=== PATIENT | female | born 1975 | race Caucasian/White ===

== ENCOUNTER 2017-09-19 07:29 | Inpatient (IN) | payer OTHER ==
[~2017-09-19] VITALS: Ht 157.5 cm; Wt 71.7 kg
[2017-09-19 07:30] VITALS: Ht 157.5 cm; Wt 71.7 kg
[2017-09-19 08:07] LABS: PLATELET COUNT 195 x10^3mcL (130-400); RED CELL DISTRIBUTION WIDTH 13.8 % (11.5-14.5)
[2017-09-19 08:28] LABS: CALCIUM 8.6 mg/dL (8.5-10.1); CARBON DIOXIDE 26.8 mmol/L (21-32); CHLORIDE SERUM 106 mmol/L (98-107); CREATININE SERUM 0.6 mg/dL (0.6-1.0); GFR1 > 60 mL/min; GLUCOSE SERUM 64 mg/dL (74-106); POTASSIUM SERUM 3.8 mmol/L (3.5-5.1); SODIUM SERUM 139 mmol/L (136-145)
[2017-09-19 08:34] LABS: ALBUMIN 3.4 g/dL (3.4-5.0); ALKALINE PHOSPHATASE 81 U/L (46-116); ALT/SGPT 30 U/L (14-59); AMYLASE 48 U/L (25-115); AST/SGOT 24 U/L (15-37); BILIRUBIN TOTAL 0.8 mg/dL (0.20-1.00); CHOLESTEROL 136 mg/dL (<200); HDL CHOLESTEROL 54 mg/dL (40-60); LIPASE 120 IU/L (73-393); TOTAL PROTEIN, SERUM 6.5 g/dL (6.4-8.2)
[2017-09-19 09:06] LABS: microscopic required? NO
[2017-09-19 09:26] LABS: urine erythrocyte NEGATIVE (NEGATIVE)
[2017-09-19 10:20] LABS: AMPHETAMINE QUAL UR NONE DETECTED (NEG <=1000)
[2017-09-19] MEDS ORDERED: FLUOXETINE20 M3 PO ×2 (11:01→12:22)
[2017-09-19 11:03] LABS: MAGNESIUM 2.1 mg/dL (1.8-2.4); PHOSPHOROUS 3.8 mg/dL (2.5-4.9)
[2017-09-19 11:10] LABS: FREE T4 0.91 ng/dL (0.76-1.46); FREE THYROXINE INDEX 1.8 ug/dL (1.4-4.5); T4(THYROXINE) 5.2 ug/dL (4.7-13.3)
[2017-09-19 11:18] LABS: CHOLESTEROL/HDL RATIO 2.6
[2017-09-19 11:25] LABS: T3 TOTAL 0.85 ng/mL
[2017-09-19] MEDS ORDERED: NEU300 PO (12:21)
[2017-09-19 13:39] VITALS: BP 100/60
[2017-09-19 15:35] VITALS: BP 100/60
[2017-09-19 16:00] VITALS: BP 96/56
[2017-09-19 16:16] VITALS: BP 108/42
[2017-09-19 21:09] VITALS: BP 93/53
[2017-09-20 06:18] VITALS: BP 92/53
[2017-09-20 07:58] LABS: BASOPHIL % 0.5 % (0-2); PLATELET COUNT 180 x10^3mcL (130-400); RED CELL DISTRIBUTION WIDTH 13.5 % (11.5-14.5)
[2017-09-20 08:17] LABS: CALCIUM 8.3 mg/dL (8.5-10.1); CARBON DIOXIDE 26.8 mmol/L (21-32); CHLORIDE SERUM 108 mmol/L (98-107); CREATININE SERUM 0.5 mg/dL (0.6-1.0); GFR1 > 60 mL/min; GLUCOSE SERUM 75 mg/dL (74-106); PHOSPHOROUS 3.8 mg/dL (2.5-4.9); POTASSIUM SERUM 4.4 mmol/L (3.5-5.1); SODIUM SERUM 143 mmol/L (136-145)
[2017-09-20 09:46] VITALS: BP 111/49
[2017-09-20] MEDS ORDERED: GOOD SENSE OMEP20 MG PO (12:18)
[2017-09-20 13:20] VITALS: BP 101/57
[2017-09-20 16:37] VITALS: BP 109/58
[2017-09-20 16:38] VITALS: BP 101/57
== END 2017-09-20 18:24 | disposition home or self-care (01) | DRG 392 ==
LOC: ED 07:29 → DU 10:11
PROVIDERS: Emergency Medicine; Family Medicine Sports Medicine
DX: K21.9 Gastro-esophageal reflux disease without esophagitis (principal); F31.9 Bipolar disorder, unspecified; E87.8 Other disorders of electrolyte and fluid balance, not elsewhere classified; I34.0 Nonrheumatic mitral (valve) insufficiency; M50.322 Other cervical disc degeneration at C5-C6 level; Z90.49 Acquired absence of other specified parts of digestive tract; Z98.84 Bariatric surgery status; Z85.41 Personal history of malignant neoplasm of cervix uteri; Z82.49 Family history of ischemic heart disease and other diseases of the circulatory system
CPT/HCPCS: 83880; 84439; J1885; J2060; J7030; Q0092

== ENCOUNTER 2017-12-26 19:52 | Emergency (ER) | payer OTHER ==
[~2017-12-26] VITALS: Ht 157.5 cm; Wt 70.3 kg
[~2017-12-26 19:52] MED LIST: FLUOXETINE20 M3 PO; GOOD SENSE OMEP20 MG PO; NEU300 PO
[2017-12-26 19:59] VITALS: BP 103/66; Ht 157.5 cm; Wt 70.3 kg
== END 2017-12-26 20:40 | disposition left against medical advice (07) ==
LOC: ED 19:52
DX: Z53.21 Procedure and treatment not carried out due to patient leaving prior to being seen by health care provider (principal)

== ENCOUNTER 2018-08-07 10:58 | Emergency (ER) | payer OTHER ==
[~2018-08-07] VITALS: Ht 157.5 cm; Wt 68.9 kg
[2018-08-07 11:10] VITALS: Ht 157.5 cm; Wt 68.9 kg
[2018-08-07 12:24] LABS: BASOPHIL % 0.6 % (0-2); PLATELET COUNT 181 x10^3mcL (130-400); RED CELL DISTRIBUTION WIDTH 13.5 % (11.5-14.5)
[2018-08-07 12:28] LABS: CALCIUM 9.2 mg/dL (8.5-10.1); CARBON DIOXIDE 28.3 mmol/L (21-32); CHLORIDE SERUM 104 mmol/L (98-107); CREATININE SERUM 0.6 mg/dL (0.6-1.0); GFR1 > 60 mL/min; GLUCOSE SERUM 89 mg/dL (74-106); POTASSIUM SERUM 4.5 mmol/L (3.5-5.1); SODIUM SERUM 139 mmol/L (136-145)
[2018-08-07 12:32] LABS: ALBUMIN 3.7 g/dL (3.4-5.0); ALKALINE PHOSPHATASE 64 U/L (46-116); ALT/SGPT 33 U/L (14-59); AST/SGOT 21 U/L (15-37); BILIRUBIN TOTAL 1.3 mg/dL (0.20-1.00); CHOLESTEROL 160 mg/dL (<200); HDL CHOLESTEROL 69 mg/dL (40-60); MAGNESIUM 2.1 mg/dL (1.8-2.4)
[2018-08-07 12:46] LABS: microscopic required? YES; urine erythrocyte TRACE (NEGATIVE)
[2018-08-07 14:33] VITALS: BP 104/57
== END 2018-08-07 14:33 | disposition home or self-care (01) ==
LOC: ED 10:58
PROVIDERS: Emergency Medicine
DX: R42 Dizziness and giddiness (principal); S00.03XA Contusion of scalp, initial encounter; S80.01XA Contusion of right knee, initial encounter; F31.9 Bipolar disorder, unspecified; Z90.49 Acquired absence of other specified parts of digestive tract; Z85.41 Personal history of malignant neoplasm of cervix uteri; Z98.84 Bariatric surgery status; W18.30XA Fall on same level, unspecified, initial encounter; Y93.89 Activity, other specified; Y92.89 Other specified places as the place of occurrence of the external cause; Y99.8 Other external cause status
CPT/HCPCS: 82962; J7030; J8597; Q0092

== ENCOUNTER 2018-11-03 08:23 | Emergency (ER) | payer OTHER ==
[~2018-11-03] VITALS: Ht 157.5 cm; Wt 69.9 kg
[2018-11-03 08:27] VITALS: Ht 157.5 cm; Wt 69.9 kg
[2018-11-03 09:18] LABS: BASOPHIL % 1.2 % (0-2); PLATELET COUNT 194 x10^3mcL (130-400); RED CELL DISTRIBUTION WIDTH 13.1 % (11.5-14.5)
[2018-11-03 09:42] LABS: ALBUMIN 3.6 g/dL (3.4-5.0); ALKALINE PHOSPHATASE 77 U/L (46-116); ALT/SGPT 27 U/L (14-59); AST/SGOT 24 U/L (15-37); BILIRUBIN TOTAL 1.4 mg/dL (0.20-1.00); CALCIUM 8.6 mg/dL (8.5-10.1); CARBON DIOXIDE 25.2 mmol/L (21-32); CHLORIDE SERUM 105 mmol/L (98-107); CREATININE SERUM 0.6 mg/dL (0.6-1.0); GFR1 > 60 mL/min; SODIUM SERUM 139 mmol/L (136-145); T4(THYROXINE) 5.7 ug/dL (4.7-13.3); TOTAL PROTEIN, SERUM 6.9 g/dL (6.4-8.2)
[2018-11-03 09:52] LABS: GLUCOSE SERUM 53 mg/dL (74-106)
[2018-11-03 11:00] LABS: microscopic required? NO
[2018-11-03 11:24] LABS: AMPHETAMINE QUAL UR NONE DETECTED (See below)
[2018-11-03 12:06] LABS: urine erythrocyte NEGATIVE (NEGATIVE)
[2018-11-03 12:56] VITALS: BP 124/78
== END 2018-11-03 12:56 | disposition home or self-care (01) ==
LOC: ED 08:23
PROVIDERS: Emergency Medicine
DX: M79.605 Pain in left leg (principal); M79.604 Pain in right leg; R25.2 Cramp and spasm; M54.16 Radiculopathy, lumbar region; M47.896 Other spondylosis, lumbar region; F31.9 Bipolar disorder, unspecified; Z98.0 Intestinal bypass and anastomosis status; Z90.49 Acquired absence of other specified parts of digestive tract; Z98.890 Other specified postprocedural states
CPT/HCPCS: 36415; G0480; J1100; J1885

== ENCOUNTER 2018-12-29 15:58 | Emergency (ER) | payer OTHER ==
[~2018-12-29] VITALS: Ht 157.5 cm; Wt 72.1 kg
[2018-12-29 16:22] VITALS: BP 107/63; Ht 157.5 cm; Wt 72.1 kg
[2018-12-29] MEDS ORDERED: MASON NATURAL1000 IU PO (16:31)
[2018-12-29] MEDS ORDERED: FERROUS SULFAT325 M2 PO (16:32)
== END 2018-12-29 17:29 | disposition home or self-care (01) ==
LOC: ED 15:58
DX: N39.0 Urinary tract infection, site not specified (principal); F31.9 Bipolar disorder, unspecified; Z41.1 Encounter for cosmetic surgery; Z90.49 Acquired absence of other specified parts of digestive tract

== ENCOUNTER 2019-03-14 06:23 | Emergency (ER) | payer OTHER ==
[~2019-03-14] VITALS: Ht 154.9 cm; Wt 70.3 kg
[~2019-03-14 06:23] MED LIST changes: +FERROUS SULFAT325 M2 PO; +MASON NATURAL1000 IU PO
[2019-03-14 06:32] VITALS: Ht 154.9 cm; Wt 70.3 kg
[2019-03-14 07:42] VITALS: BP 118/53
[2019-03-14 08:15] LABS: UA SPECIFIC GRAVITY <=1.005 (1.005-1.035); microscopic required? YES; urine erythrocyte 3+ (NEGATIVE)
== END 2019-03-14 07:42 | disposition home or self-care (01) ==
LOC: ED 06:23
PROVIDERS: Specialist
DX: N39.0 Urinary tract infection, site not specified (principal); F31.9 Bipolar disorder, unspecified; Z98.890 Other specified postprocedural states; Z90.49 Acquired absence of other specified parts of digestive tract; Z85.41 Personal history of malignant neoplasm of cervix uteri; Z98.86 Personal history of breast implant removal; Z98.84 Bariatric surgery status
CPT/HCPCS: J1885

== ENCOUNTER 2019-03-24 11:09 | Emergency (ER) | payer OTHER ==
[~2019-03-24] VITALS: Ht 157.5 cm; Wt 70.3 kg
[2019-03-24 11:14] VITALS: Ht 157.5 cm; Wt 70.3 kg
[2019-03-24 12:43] LABS: BASOPHIL % 0.2 % (0-2); PLATELET COUNT 169 x10^3mcL (130-400); RED CELL DISTRIBUTION WIDTH 14.6 % (11.5-14.5)
[2019-03-24 13:04] LABS: CALCIUM 8.1 mg/dL (8.5-10.1); CHLORIDE SERUM 105 mmol/L (98-107); CREATININE SERUM 0.6 mg/dL (0.6-1.0); GFR1 > 60 mL/min; GLUCOSE SERUM 82 mg/dL (74-106); POTASSIUM SERUM 4.3 mmol/L (3.5-5.1); SODIUM SERUM 139 mmol/L (136-145)
[2019-03-24 13:08] LABS: ALBUMIN 3.5 g/dL (3.4-5.0); ALKALINE PHOSPHATASE 67 U/L (46-116); ALT/SGPT 24 U/L (14-59); AST/SGOT 25 U/L (15-37); BILIRUBIN TOTAL 1.32 mg/dL (0.20-1.00); LIPASE 81 IU/L (73-393); TOTAL PROTEIN, SERUM 6.4 g/dL (6.4-8.2)
[2019-03-24 14:52] VITALS: BP 121/64
== END 2019-03-24 14:52 | disposition home or self-care (01) ==
LOC: ED 11:09
PROVIDERS: Emergency Medicine
DX: K29.00 Acute gastritis without bleeding (principal); F31.9 Bipolar disorder, unspecified; Z98.890 Other specified postprocedural states; Z90.49 Acquired absence of other specified parts of digestive tract; Z85.41 Personal history of malignant neoplasm of cervix uteri
CPT/HCPCS: 36415; Q0092

== ENCOUNTER 2019-05-23 10:14 | Inpatient (IN) | payer OTHER ==
--- NOTE | 2019-05-22 19:15 | NUR ---
PT RECEIVED A/O X4, ABLE TO MAKE NEEDS KNOWN. MED-SURG, DENIES ANY CP/PRESSURE. PULSES PALPABLE, NO EDEMA PRESENT. BREATHING IS EVEN AND UNLABORED ON RA, NO RESP DISTRESS NOTED. ABD SOFT AND NONDISTENDED, DENIES N/V. PT NPO AT THIS TIME FOR XR SBFT. VOIDS FREELY, BRP. AMBULATORY WITH STEADY GAIT. SKIN IS WARM AND DRY, INTACT. PT DENIES HAVING ANY PAIN AT THIS TIME. IVF INFUSING WELL TO LAC, SITE WNL. NO ACUTE DISTRESS OBSERVED. BED IN LOWEST SETTING, SIDE RAILS UP X2, CALL LIGHT WITHIN REACH. WILL CONT TO MONITOR.
[~2019-05-23] VITALS: Ht 154.9 cm; Wt 68.9 kg
[2019-05-23 10:20] VITALS: Ht 154.9 cm; Wt 68.9 kg
--- NOTE | 2019-05-23 10:36 | NUR ---
PT AMBULATED TO ROOM. PATIENT ORIENTED TO ROOM AND CALL LIGHT. PATIENT PLACED ON ANALYTICAL LAB TECHNICIAN, NSR. PT STABLE AND FREE OF ANY DISTRESS. WILL CONTINUE TO MONITOR.
--- NOTE | 2019-05-23 11:19 | NUR ---
PT TO CT AT THIS TIME, VIA WHEELCHAIR.
[2019-05-23 11:25] LABS: BASOPHIL % 0.3 % (0-2); PLATELET COUNT 167 x10^3mcL (130-400); RED CELL DISTRIBUTION WIDTH 13.8 % (11.5-14.5)
[2019-05-23 11:31] LABS: CALCIUM 8.1 mg/dL (8.5-10.1); CARBON DIOXIDE 25.3 mmol/L (21-32); CHLORIDE SERUM 104 mmol/L (98-107); CREATININE SERUM 0.6 mg/dL (0.6-1.0); GFR1 > 60 mL/min; GLUCOSE SERUM 98 mg/dL (74-106); POTASSIUM SERUM 4.2 mmol/L (3.5-5.1); SODIUM SERUM 138 mmol/L (136-145)
[2019-05-23 11:35] LABS: ALBUMIN 3.4 g/dL (3.4-5.0); ALKALINE PHOSPHATASE 69 U/L (46-116); ALT/SGPT 30 U/L (14-59); AMYLASE 32 U/L (25-115); AST/SGOT 23 U/L (15-37); BILIRUBIN TOTAL 1.67 mg/dL (0.20-1.00); LIPASE 72 IU/L (73-393); TOTAL PROTEIN, SERUM 6.4 g/dL (6.4-8.2)
--- NOTE | 2019-05-23 14:19 | NUR ---
PT MEDICATED AND REPORTS FEELING BETTER. OK PER DR MONTES FOR PT TO HAVE ICE CHIPS. CUP OF ICE CHIPS GIVEN
[2019-05-23 15:55] LABS: MAGNESIUM 1.9 mg/dL (1.8-2.4); PHOSPHOROUS 3.2 mg/dL (2.5-4.9)
[2019-05-23 15:59] LABS: CHOLESTEROL/HDL RATIO 1.6
--- NOTE | 2019-05-23 16:13 | NUR ---
REPORT AT THIS TIME GIVEN TO TRAVIS TSAI. ALL QUESTIONS AT THIS TIME ANSWERED.
[2019-05-23 17:10] VITALS: BP 102/50
--- NOTE | 2019-05-23 17:12 | NUR ---
RECEIVED PT FROM ED VIA ROHIT. ORIENTED PT TO ROOM AND SURROUNDINGS. IV NOTED TO LAC PATENT AND INTACT. INSTRUCTED PT ON THE USE OF CALL LIGHT FOR ASSISTANCE. ENDORSED PT TO PRIMARY NURSE EULALIO
--- NOTE | 2019-05-23 17:15 | NUR ---
PT SITTING UP IN BED. NO ACUTE RESP DISTRESS NOTED ON RA. PT C/O ABDOMINAL PAIN TO MUQ SHARP 12/11. MEDICATED PER EMAR. IV TO LAC FLUSHED WELL. IV FLUIDS INFUSING ORDEDER. GIVEN PO MEDS WITH SMALL SIPS OF WATER. FAMILY AT BEDSIDE. WILL CONTINUE TO MONITOR. CALL LIGHT IN REACH. BED IN LOWEST POSITION.
--- NOTE | 2019-05-23 17:24 | NUR ---
SPOKE WITH DR. MITCH HULL FOR PT TO HAVE ICE CHIPS.
[2019-05-23 19:36] VITALS: BP 101/51
--- NOTE | 2019-05-23 20:13 | NUR ---
PT C/O 02/10 ABD PAIN, PRN TORADOL NOT DUE AT THIS TIME. DR CHAIDEZ MADE AWARE. ONE TIME ORDER OF TORADOL IVP GIVEN ORDERED. NO ACUTE DISTRESS NOTED. WILL CONT TO MONITOR.
--- NOTE | 2019-05-24 00:29 | NUR ---
PT RESTING IN BED WITH EYES CLOSED, BUT IS EASILY AROUSABLE. BREATHING IS EVEN AND UNLABORED, NO RESP DISTRESS NOTED. NO S/S OF PAIN OBSERVED. PT NPO FOR CONTINUATION OF XR SBFT. IVF INFUSING WELL TO LAC, SITE WNL. NO ACUTE DISTRESS NOTED. CALL LIGHT WITHIN REACH. WILL CONT TO MONITOR.
--- NOTE | 2019-05-24 04:31 | NUR ---
PT IN NO ACUTE DISTRESS. CONTINUITY OF CARE ENDORSED TO MICHELLE ROBLES. ALL QUESTIONS AND CONCERNS ADDRESSED.
[2019-05-24 05:20] VITALS: BP 94/61
[2019-05-24 05:37] LABS: UA SPECIFIC GRAVITY >=1.030 (1.005-1.035); microscopic required? YES; urine erythrocyte NEGATIVE (NEGATIVE)
[2019-05-24 06:00] LABS: AMPHETAMINE QUAL UR NONE DETECTED (See below)
[2019-05-24 06:36] LABS: ALKALINE PHOSPHATASE 56 U/L (46-116); ALT/SGPT 25 U/L (14-59); AST/SGOT 20 U/L (15-37); CALCIUM 7.7 mg/dL (8.5-10.1); CARBON DIOXIDE 26.3 mmol/L (21-32); CHLORIDE SERUM 108 mmol/L (98-107); CREATININE SERUM 0.5 mg/dL (0.6-1.0); GFR1 > 60 mL/min; GLUCOSE SERUM 87 mg/dL (74-106); SODIUM SERUM 140 mmol/L (136-145)
--- NOTE | 2019-05-24 06:42 | NUR ---
PT HAD A RESTING NIGHT NO CHANGE AT THIS TIME AND WILL CONTINUE TO MONITOR.
[2019-05-24 06:44] LABS: PLATELET COUNT 135 x10^3mcL (130-400); RED CELL DISTRIBUTION WIDTH 13.9 % (11.5-14.5)
[2019-05-24 06:49] LABS: ALBUMIN 2.8 g/dL (3.4-5.0); TOTAL PROTEIN, SERUM 5.7 g/dL (6.4-8.2)
--- NOTE | 2019-05-24 07:10 | NUR ---
SEEN PATIENT AOX4, NO C/O PAIN. NOT IN DISTRESS. MED SURG. MODERATE PULSES, NO EDEMA, CTA ON BLF, ON ROOM AIR AT 98%, HYPOACTIVE BS, LAST BM 05/23/19 , NO DYSURIA, SKIN DRY INTACT, ABLE TO MOVE EXTREMITIES, IV INTACT AND PATENT AT LAC. CALLL LIGHT WITHIN REACH . BED AT LOWEST POSITION.
--- NOTE | 2019-05-24 08:24 | NUR ---
CONFIRMED WITH PATIENT THAT IT IS OK TO RELAY INFORMATION REGARDING HOSPITAL STAY AND STATUS OF PATIENT TO MOM AND AUNT.
--- NOTE | 2019-05-24 08:45 | NUR ---
SEEN PATIENT AOX4, NOT IN DISTRESS, NO C/O ABDOMINAL PAIN . + BOWEL SOUNDS. LBM 05/23/19 . PO MEDICATIONS GIVEN . COLACE REFUSED. PATIENT VERBALIZED SHE DOESN'T NEED IT. SHE'S ALREADY GONE TO THE BATHROOM. PANTOPRAZOLE IVP GIVEN AND FLUSHED WITH NSS. CALL LIGHT WITHIN REACH. BED AT LOWEST POSITION.
[2019-05-24 09:10] VITALS: BP 99/57
--- NOTE | 2019-05-24 11:43 | NUR ---
SEEN PATIENT ASLEEP, AWAKE TO VOICE. PATIENT MADE AWARE TO OBTAIN STOOL SAMPLE SPECIMEN CONTAINER PREPARED AT BATHROOM . PATIENT COMPLAINED OF CRAMPING ABDOMINAL PAIN 01/10. MOTRIN REFUSED . PATIENT VERBALIZED HISTORY OF BYPASS GASTRIC SURGERY AND IBUPROFEN WILL CAUSE BLEEDING. TORADOL IVP GIVEN INSTEAD. PATIENT OK AND TOLERATED MEDICATION. CALL LIGHT WITHIN REACH. BED AT LOWEST POSITION.
[2019-05-24 13:33] LABS: BAND NEUTROPHIL 9 % (0-10); MONOCYTE 10 % (0-7); SEGMENTED NEUTROPHILS 55 % (37-75); rbc morphology (normal/abnorm) NORMAL (NORMAL)
[2019-05-24 13:34] LABS: PLATELET MORPHOLOGY PLATELETS NORMAL
--- NOTE | 2019-05-24 13:38 | NUR ---
SEEN PATIENT AWAKE, C/O CRAMPING ABD PAIN 02/10. PO MEDICATION GIVEN. CALL LIGHT WITHIN REACH . BED AT LOWEST POSITION.
--- NOTE | 2019-05-24 13:45 | NUR ---
DR. MEYER MADE AWARE OF WBC 2.[address] MEYER WILL REPEAT CBC TO CONFIRM WBC RESULT AND IDENTIFY CAUSE OF PATIENT'S CONDITION. PATIENT REQUESTED SANDWICH. DR MEYER MADE AWARE OF PATIENT'S REQUEST . FULL DIET CHANGED TO REGULAR DIET PER DR MEYER'S ORDERS.
--- NOTE | 2019-05-24 13:46 | NUR ---
PATIENT TOLLERATED FULL LIQUID DIET. 1 EPISODE OF WATERY BM NOTED. DR MEYER MADE AWARE. PER DR. MEYER WILL CHANGE DIET TO REGULAR.
[2019-05-24 14:14] LABS: PLATELET COUNT 149 x10^3mcL (130-400); RED CELL DISTRIBUTION WIDTH 13.8 % (11.5-14.5)
[2019-05-24 14:55] LABS: BAND NEUTROPHIL 11 % (0-10); BASOPHIL 0 % (0-2); MONOCYTE 1 % (0-7); SEGMENTED NEUTROPHILS 51 % (37-75)
[2019-05-24 14:56] LABS: rbc morphology (normal/abnorm) NORMAL (NORMAL)
--- NOTE | 2019-05-24 16:20 | NUR ---
PATIENT VERBALIZED PAIN 02/10 AND THAT TORADOL WASN'T WORKING . REFUSED MOTRIN. DR. MEYER MADE AWARE. DR MEYER ORDERED NORCO FOR PAIN. REPORTED RESULTS OF OCCULT BLOOD + TO DR. MEYER.
[2019-05-24 16:28] VITALS: BP 111/44
--- NOTE | 2019-05-24 17:26 | NUR ---
SEEN PATIENT AMBULATING FROM BRP TO BED . HAD ANOTHER EPISODE OF LOOSE WATERY STOOL, YELLOW BROWN COLOR. PAIN REASSESSED. MODERATE CRAMPING PAIN 5/10 NOTED. CALL LIGHT WITHIN REACH. BED AT LOWEST POSITION.
--- NOTE | 2019-05-24 18:00 | NUR ---
PATIENT TRANSPORTED BACK TO ROOM FROM [facility] BY [facility]. . IV RECONNECTED. ZOSYN CONTINUED. IV INTACT AND PATENT. NO SUBJECTIVE COMPLAINTS. NO PAIN NOTED. CALL LIGHT WITHIN REACH. BED AT LOWEST POSITION.
--- NOTE | 2019-05-24 18:28 | NUR ---
PATIENT HAS LESS ABDOMINAL CRAMPING PAIN AFTER NORCO WAS GIVEN. NOT IN DISTRESS. TOLERATED REGULAR DIET. IV SITE INTACT AND PATENT, INFUSING WELL. NO REDNESS OR INFILTRATION. QUESTIONS ADDRESSED. CALL LIGHT WITHIN REACH. BED AT LOWEST POSITION.
--- NOTE | 2019-05-24 19:25 | NUR ---
PT RECEIVED REPORT FROM AM NURSE. PT LAYING DOWN IN BED WITH FAMILY AT BED SIDE. PT AAOX4, ABLE TO MAKE NEEDS KNOWN AND FOLLOW COMMANDS. MED-SURG, DENIES CP/PRESSURE AT THIS TIME. PALPABLE PULSES TO ALL EXTREMETIES, NO EDEMA NOTED. LUNG SOUNDS CTA. BREATHING EVEN AND ULABORED ON RA. NO AUCTE DISTRESS NOTED. ABD SOFT AND NONDISTENDED. HYPERACTIVE BS X4 QUAD. C/O WATERY DIARRHEA. VOPIDS FREELY, BRP. AMBULATORY. IV TO LAC LEAKING, PT C/O PAIN AT IV SITE. IV REMOVED AT THIS TIME. WILL INSERT NEW IV. BED AT LOWEST SETTING. SIDE RAILS X2 UP. CALL LIGHT WITHING REACH. WILL CONT TO MONITOR.
[2019-05-24 20:34] VITALS: BP 119/63
--- NOTE | 2019-05-24 21:45 | NUR ---
PT C/O 12/11 ABD PAIN NO ALLEVIATING FACTORS. MEDICATED WITH PRN NORCO PER SEP. NO ACUTE DISTRESS NOTED. WILL CONT TO MONITOR.
--- NOTE | 2019-05-25 04:59 | NUR ---
PT SLEPT AT INTERVALS THROUGHOUT THE NIGHT, BREATHING EVEN AND UNLABORED ON RA. PT CONT TO HAVE WATERY STOOLS. NO ACUTE CHANGES DURING THE NIGHT. ALL NEEDS ASSESSED AND ATTENDE TO. BED AT LOWEST SETTING. SIDE RAILS X2 UP. CALL LIGHT WITHING REACH. WILL ENDORSE CARE TO AM NURSE.
[2019-05-25 05:31] VITALS: BP 100/53
[2019-05-25 06:28] LABS: PLATELET COUNT 142 x10^3mcL (130-400); RED CELL DISTRIBUTION WIDTH 13.9 % (11.5-14.5)
[2019-05-25 06:47] LABS: ALKALINE PHOSPHATASE 62 U/L (46-116); ALT/SGPT 24 U/L (14-59); AST/SGOT 19 U/L (15-37); BILIRUBIN TOTAL 0.4 mg/dL (0.20-1.00); CALCIUM 7.4 mg/dL (8.5-10.1); CHLORIDE SERUM 109 mmol/L (98-107); CREATININE SERUM 0.5 mg/dL (0.6-1.0); GFR1 > 60 mL/min; GLUCOSE SERUM 81 mg/dL (74-106); POTASSIUM SERUM 3.8 mmol/L (3.5-5.1); SODIUM SERUM 141 mmol/L (136-145)
[2019-05-25 06:51] LABS: MAGNESIUM 1.9 mg/dL (1.8-2.4); PHOSPHOROUS 3.1 mg/dL (2.5-4.9)
[2019-05-25 06:54] LABS: ALBUMIN 2.7 g/dL (3.4-5.0); TOTAL PROTEIN, SERUM 5.3 g/dL (6.4-8.2)
--- NOTE | 2019-05-25 07:20 | NUR ---
RECEIVED REPORT FROM MANAGER STRATEGIC NURSE PATIENT LYING IN BED A&O X4, IV ON LFA PATENT AND INTACT NO REDNESS OR EDEMA NOTED. PATIENT DENIES ANY PAIN AT THIS TIME. ALL QUESTIONS AND CONCERNS ADDRESSED AT THIS TIME. BED IN LOW POSITION CALL LIGHT WITHIN REACH. WILL CONTINUE TO MONITOR.
[2019-05-25 07:32] LABS: CARBON DIOXIDE 22.5 mmol/L (21-32)
--- NOTE | 2019-05-25 08:30 | NUR ---
PATIENT TOLERATED OATMEAL BREAKFAST WELL. PATIENT AND MOTHER WERE CONCERNED OF DIET AND IT CAUSING DIARRHEA. ADVISED PATIENT TO EAT MORE WHOLE GRAINS AND FIBER. PATIENT VERBALIZED UNDERSTANDING. ALL QUESTIONS AND CONCERNS ADDRESSED AT THIS TIME. BED IN LOW POSITION AND CALL LIGHT IS WITHIN REACH. WILL CONTINUE TO MONITOR.
[2019-05-25 09:01] VITALS: BP 110/44
--- NOTE | 2019-05-25 09:08 | NUR ---
PATIENT C/O PAIN IN ABDOMEN ADMINISTERED NORCO PO PER PATIENT REQUEST FOR 8/10 PAIN PER SEP. PATIENT TOLERATED WELL NO ADVERSE REACTIONS NOTED. SPOKE TO PATIENTS MOM ON PHONE PER PATIENTS REQUEST UPDATED HER ON CARE AND AWAITING G.I. CONSULT . ALL QUESTIONS AND CONCERNS ADDRESSED AT THIS TIME. BED IN LOW POSITION AND CALL LIGHT IS WITHIN REACH. WILL CONTINUE TO MONITOR.
--- NOTE | 2019-05-25 11:40 | NUR ---
PATIENT TOOK A SHOWER ALL SAFETY PRECAUTIONS IN PLACE. IV COVERED PROPERLY AND SECURE. ALL NEEDS ATTENDED TO AT THIS TIME.
--- NOTE | 2019-05-25 12:11 | NUR ---
PATIENT NOTIFIED OF NPO STATUS PER DR. MEYER FOR POSSIBLE ENDOSCOPY PROCEDURE. PENDING G.I. CONSULT. PROVIDED ICE CHIPS FOR PATIENT. PATIENT VERBALIZES UNDERSTANDING. WILL CONTINUE TO MONITOR.
[2019-05-25 13:29] LABS: MONOCYTE 9 % (0-7); SEGMENTED NEUTROPHILS 65 % (37-75)
[2019-05-25 13:32] LABS: rbc morphology (normal/abnorm) ABNORMAL (NORMAL)
--- NOTE | 2019-05-25 14:02 | NUR ---
PATIENT C/O ABD PAIN 02/10 ADMINISTERED NORCO PO PER SEP FOR SEVERE PAIN. PATIENT TOLERATED WELL. NO ADVERSE REACTIONS NOTED. ALL NEEDS ATTENDED TO AT THIS TIME. BED IN LOW POSITION CALL LIGHT WITHIN REACH. WILL CONTINUE TO MONITOR.
--- NOTE | 2019-05-25 14:22 | NUR ---
PATIENT DOWN TO G.I. FOR CONSULT WITH DR HASTINGS AND POSSIBLE EGD CHECKLIST DONE AND . PRE OP PROCEDURES DONE.
--- NOTE | 2019-05-25 16:35 | NUR ---
PATIENT BACK FROM G.I. POST EGD PATIENT ASLEEP AND AROUSABLE. V/S STABLE BP:112/61 T:97.1 HR 56 RR 16 SP02 96% RA. ALL NEEDS ATTENDED TO AT THIS TIME. BED IN LOW POSITION CALL LIGHT WITHIN REACH. WILL CONTINUE TO MONITOR.
[2019-05-25 16:57] VITALS: BP 112/61
--- NOTE | 2019-05-25 18:25 | NUR ---
PATIENT SITTING UP IN BED TALKING ON THE PHONE. PATIENT DENIES ANY PAIN AT THIS TIME. IV OIN LFA PATENT AND INTACT. ALL NEEDS ATTENDED TO . BED IN LOW POSITION CALL LIGHT WITHIN REACH. WILL ENDORSE CARE TO CUSHION PADDER NURSE.
--- NOTE | 2019-05-25 19:20 | NUR ---
RECEIVED PT RESTING IN BED, NO S/S OF PAIN NOTED. AOX4, DENIES EDWARDS/DIZZINESS. MEDSURG PT DENIES CP PULSE PALPABLE BILAT, DENIES NUMBNESS/TINGLING INFEET, RESP EVEN AND UNLABORED ON RA, DENIES SOB. ABD SOFT, ROUND, DENIES PAIN AT THIS TIME. PT VOIDS FREELY, DENIES DYSURIA. GENERALIZED WEAKNESS, SKIN INTACT. IV SITE TO THE LFA NS @ 100ML/HR. NO REDNESS, SWELLING OR PAIN NOTED. ALL COMFORT AND SAFETY MEASURES PROVIDED FOR, CALL LIGHT WITHIN REACH, BED IN LOWEST POSITION, WILL CONTINUE TO MONITOR.
--- NOTE | 2019-05-25 20:15 | NUR ---
DR SUTTON PERFORMING ROUNDS ON PT, UPDATED DRAgus IN REGARDS TO POC, PT HAD EGD WITH RELATIVELY NORMAL FINDINGS. NO NEW ORDERS AT THIS TIME, WILL UPDATE PT WITH PLAN OF CARE, PT VERY CURIOUS TO WHAT THE RESULTS OF THE EGD WERE, ALL QUESTIONS AND CONCERNS ADDRESSED, CALL LIGHT WITHIN REACH, BED IN LOWEST POSITION, WILL CONTINUE TO MONITOR.
[2019-05-25 20:41] VITALS: BP 116/56
--- NOTE | 2019-05-25 21:45 | NUR ---
PROVIDED PT WITH HOT TEA PER REQUEST. ALSO MEDICATED PT WITH NORCO PO FOR ABD PAIN. PT TOLERATED ADMINISTRATION WELL, PT REPORTS PASSING ALOT OF GAS. CALL LIGHT WITHIN REACH, BED IN LOWEST POSITION, WILL CONTINUE TO MONITOR.
--- NOTE | 2019-05-26 05:10 | NUR ---
PT RESTED IN INTERVALS DURING SHIFT, NO ACUTE CHANGES OCCURRING OVERNIGHT. PT REPORTS PAIN UNDER CONTROL AT THIS TIME, IV SITE REMAINS PATENT TO LFA, NS @ 100ML/HR. TOELRATING ANTIBIOTIC WELL. RECEIVED ORDER FOR MALOX TAB D/T GAS PAIN. WILL MEDICATE PER ORDER. ALL COMFORT AND SAFETY MEASURES PROVIDED FOR, CALL LIGHT WITHIN REACH, BED IN LOWEST POSITION, WILL CONTINUE TO MONITOR.
[2019-05-26 05:29] VITALS: BP 102/57
--- NOTE | 2019-05-26 06:08 | NUR ---
UPON ASSESSMENT OF PT, PT SITTING UP IN BED DRINKING HOT TEA. PT STS SHE FEELS LIKE SHE IS GETTING A UTI. PT REPORTS SYMPTOMS ARE BURNING WITH URINATION, HESITENCY, PT REPORTS HER URINE IS MORE CARRIE (DARK). INFORMED RESIDENT, NO NEW ORDERS AT THIS TIME. ENCOURAGED PT TO DRINK FLUIDS AND WIPE FROM FRONT TO BACK TO PREVENT ANY POSSIBLE CONTAMINATION. PT VERBALIZES UNDERSTANDING, CALL LIGHT WITHIN REACH, BED IN LOWEST POSITION, WILL CONTINUE TO MONITOR.
[2019-05-26 06:51] LABS: PLATELET COUNT 142 x10^3mcL (130-400); RED CELL DISTRIBUTION WIDTH 14.1 % (11.5-14.5)
[2019-05-26 07:00] LABS: ALKALINE PHOSPHATASE 61 U/L (46-116); ALT/SGPT 21 U/L (14-59); AST/SGOT 10 U/L (15-37); BILIRUBIN TOTAL 0.35 mg/dL (0.20-1.00); CALCIUM 7.6 mg/dL (8.5-10.1); CARBON DIOXIDE 24.5 mmol/L (21-32); CHLORIDE SERUM 109 mmol/L (98-107); CREATININE SERUM 0.6 mg/dL (0.6-1.0); GFR1 > 60 mL/min; GLUCOSE SERUM 77 mg/dL (74-106); MAGNESIUM 1.8 mg/dL (1.8-2.4); POTASSIUM SERUM 4.3 mmol/L (3.5-5.1); SODIUM SERUM 141 mmol/L (136-145)
[2019-05-26 07:08] LABS: ALBUMIN 2.6 g/dL (3.4-5.0); TOTAL PROTEIN, SERUM 5.4 g/dL (6.4-8.2)
--- NOTE | 2019-05-26 07:15 | NUR ---
RECEIVED REPORT FROM NIGHTY SHIFT NURSE PATIENT SITTING UP IN BED DENIES ANY PAIN AT THIS TIME. PATIENT REPORTED DIARRHEA AT 4AM AND GAS. WILL ADMINISTER PRESCRIBED MED FOR GAS. COTTON WEIGHER PEGGY IS AWARE. IV ON LFA INFUSING PATENT AND INTACT. NO S/S OF RESPIRATORY DISTRESS. BED IN LOW POSITION CALL LIGHT WITHIN REACH. WILL CONTINUE TO MONITOR.
--- NOTE | 2019-05-26 08:22 | NUR ---
PATIENT C/O ABD PAIN 01/10 ADMINISTERED NORCO PO PER MAR FOR MODERATE PAIN. ADMINISTERED SCHEDULED MEDS PER MAR PATIENT TOLERATED WELL NO ADVERSE REACTIONS NOTED. ALL NEEDS ATTENDED TO BED IN LOW POSITION CALL LIGHT WITHIN REACH. WILL CONTINUE TO MONITOR.
[2019-05-26 09:46] VITALS: BP 104/63
[2019-05-26] MEDS ORDERED: SIMETHICONE80 MG CH (10:01)
[2019-05-26] MEDS ORDERED: ACETAMINOPHEN-H1 TA1 PO (10:02)
[2019-05-26 10:53] VITALS: BP 104/63
--- NOTE | 2019-05-26 11:20 | NUR ---
DISCHARGE INSTRUCTINS GIVEN PATIENT VERBALIZED UNDERSTANDING. IV D/C'D CATHETER IN PLACE DRESSING APPLIED. NO EDEMA OR REDNESS NOTED. WAITING FOR RIDE TO PICK HER UP. VITAL SIGNS STABLE UPON DISCHARGE. PT ALERT AND ORIENTED.
[2019-05-26 11:24] VITALS: BP 104/63
[2019-05-26 11:30] LABS: BAND NEUTROPHIL 4 % (0-10); BASOPHIL 0 % (0-2); MONOCYTE 9 % (0-7); SEGMENTED NEUTROPHILS 58 % (37-75)
[2019-05-26 11:31] LABS: PLATELET MORPHOLOGY PLATELETS NORMAL
[2019-05-26 11:32] LABS: rbc morphology (normal/abnorm) NORMAL (NORMAL)
--- NOTE | 2019-05-26 11:45 | NUR ---
PATIENT ESCORTED WITH SALESPERSON PARTS TO LOBBY ALL QUESTIONS AND CONCERNS ADDRESSED. ALL PERSONAL BELONGINGS TAKEN WITH PATIENT. ARMBAND TAKEN OFF PT STABLE AND DENIES ANY PAIN.
== END 2019-05-26 11:47 | disposition home or self-care (01) | DRG 389 ==
LOC: ED 10:14 → MU 14:51
PROVIDERS: Emergency Medicine; Internal Medicine Gastroenterology; ADMIT General Practice
PROC: 0DB78ZX Excision of Stomach, Pylorus, Via Natural or Artificial Opening Endoscopic, Diagnostic (ICD-10-PCS; principal; 2019-05-25 19:15)
DX: K56.7 Ileus, unspecified (principal); F31.30 Bipolar disorder, current episode depressed, mild or moderate severity, unspecified; E44.1 Mild protein-calorie malnutrition; D64.9 Anemia, unspecified; E80.6 Other disorders of bilirubin metabolism; F15.21 Other stimulant dependence, in remission; Z98.84 Bariatric surgery status; Z68.27 Body mass index [BMI] 27.0-27.9, adult; Z87.891 Personal history of nicotine dependence; Z85.41 Personal history of malignant neoplasm of cervix uteri
CPT/HCPCS: 43235; 87046; 87046-59; C9113; G0378; J1200; J1610; J1885; J2250; J2310; J2405; J3010; J3490; J7030; J7042; Q0092

== ENCOUNTER 2019-09-20 09:52 | Emergency (ER) | payer OTHER ==
[~2019-09-20] VITALS: Ht 157.5 cm; Wt 76.2 kg
[~2019-09-20 09:52] MED LIST changes: +ACETAMINOPHEN-H1 TA1 PO; +SIMETHICONE80 MG CH
[2019-09-20 10:10] VITALS: Ht 157.5 cm; Wt 76.2 kg
[2019-09-20 11:43] VITALS: BP 120/59
== END 2019-09-20 11:57 | disposition home or self-care (01) ==
LOC: ED 09:52
DX: G57.02 Lesion of sciatic nerve, left lower limb (principal); B02.9 Zoster without complications; Z90.49 Acquired absence of other specified parts of digestive tract; Z41.1 Encounter for cosmetic surgery; Z98.890 Other specified postprocedural states; Z85.830 Personal history of malignant neoplasm of bone
CPT/HCPCS: J1885

== ENCOUNTER 2019-10-06 15:13 | Emergency (ER) | payer OTHER ==
[~2019-10-06] VITALS: Ht 157.5 cm; Wt 73.5 kg
[2019-10-06 15:18] VITALS: Ht 157.5 cm; Wt 73.5 kg
[2019-10-06 16:35] VITALS: BP 106/58
== END 2019-10-06 16:35 | disposition home or self-care (01) ==
LOC: ED 15:13
DX: J06.9 Acute upper respiratory infection, unspecified (principal); Z90.49 Acquired absence of other specified parts of digestive tract; Z85.41 Personal history of malignant neoplasm of cervix uteri; Z98.890 Other specified postprocedural states; Z98.84 Bariatric surgery status
CPT/HCPCS: J1885; Q0162

== ENCOUNTER 2019-10-15 16:21 | Emergency (ER) | payer OTHER ==
[~2019-10-15] VITALS: Ht 157.5 cm; Wt 75.3 kg
[2019-10-15 16:28] VITALS: Ht 157.5 cm; Wt 75.3 kg
[2019-10-15 17:18] VITALS: BP 118/52
== END 2019-10-15 17:18 | disposition home or self-care (01) ==
LOC: ED 16:21
DX: M54.5 Low back pain (principal); G89.29 Other chronic pain; Z90.49 Acquired absence of other specified parts of digestive tract; Z98.890 Other specified postprocedural states; Z41.1 Encounter for cosmetic surgery
CPT/HCPCS: J1885

== ENCOUNTER 2020-08-16 17:47 | Emergency (ER) | payer OTHER ==
[~2020-08-16] VITALS: Ht 167.6 cm; Wt 759.3 kg
[2020-08-16 17:51] VITALS: Ht 167.6 cm; Wt 759.3 kg
[2020-08-16 19:19] LABS: BASOPHIL % 0.8 % (0.2-1.3); PLATELET COUNT 194 x10^3mcL (179-408)
[2020-08-16 19:21] LABS: RED CELL DISTRIBUTION WIDTH 17.9 % (12.3-17.7)
[2020-08-16 19:44] LABS: CARBON DIOXIDE 27.6 mmol/L (21-32); CHLORIDE SERUM 105 mmol/L (98-107); CREATININE SERUM 0.6 mg/dL (0.6-1.0); GFR1 > 60 mL/min; GLUCOSE SERUM 71 mg/dL (74-106); POTASSIUM SERUM 4.3 mmol/L (3.5-5.1); SODIUM SERUM 137 mmol/L (136-145)
[2020-08-16 19:49] LABS: ALKALINE PHOSPHATASE 68 U/L (46-116); ALT/SGPT 26 U/L (14-59); AST/SGOT 19 U/L (15-37); BILIRUBIN TOTAL 0.3 mg/dL (0.20-1.00); CHOLESTEROL 138 mg/dL (<200); HDL CHOLESTEROL 50 mg/dL (40-60); LIPASE 109 IU/L (73-393); TOTAL PROTEIN, SERUM 6.4 g/dL (6.4-8.2)
[2020-08-16 19:50] LABS: ALBUMIN 3.3 g/dL (3.4-5.0)
[2020-08-16 19:56] LABS: ovalocyte/elliptocyte 2+; rbc morphology (normal/abnorm) ABNORMAL (NORMAL)
[2020-08-16 20:14] LABS: microscopic required? NO
[2020-08-16 20:37] LABS: urine erythrocyte NEGATIVE (NEGATIVE)
[2020-08-16 21:21] LABS: AMPHETAMINE QUAL UR NONE DETECTED (See below)
[2020-08-17 00:05] VITALS: BP 93/48
== END 2020-08-16 20:05 | disposition home or self-care (01) ==
LOC: ED 17:47
PROVIDERS: Emergency Medicine
DX: R07.89 Other chest pain (principal); D64.9 Anemia, unspecified; E46 Unspecified protein-calorie malnutrition; F31.9 Bipolar disorder, unspecified; Z98.890 Other specified postprocedural states; Z90.49 Acquired absence of other specified parts of digestive tract; Z20.828 Contact with and (suspected) exposure to other viral communicable diseases
CPT/HCPCS: 83880; J1885; U0003